=== PATIENT | female | born 1995 | race Hispanic/Latino ===

== ENCOUNTER 2020-09-07 22:51 | Outpatient (CLI) | payer OTHER ==
[2020-09-07 23:25] VITALS: BP 104/67
[2020-09-07] MEDS ORDERED: LACTATED RINGERS 1,000 ML IV ONE (23:56)
[2020-09-08 00:45] LABS: Bacteria,Urine 1+ /HPF (Negative); Bilirubin,Urine NEG (Negative); Blood,Urine NEG (Negative); Color,Urine Yellow (Yellow); Mucus,Urine 1+ /HPF; Protein,Urine <15 mg/dL mg/dL (Negative)
== END 2020-09-08 03:45 | disposition home or self-care (01) ==
LOC: TRG 22:51 → APU 22:52 → TRG 09-08 03:45
PROVIDERS: ATTEND Obstetrics & Gynecology
DX: O26.892 Other specified pregnancy related conditions, second trimester (principal); R10.9 Unspecified abdominal pain; R10.2 Pelvic and perineal pain; Z3A.24 24 weeks gestation of pregnancy
CPT/HCPCS: 59025; 81001